=== PATIENT | male | born 2000 | race Caucasian/White ===

== ENCOUNTER 2025-05-01 07:56 | Day surgery (SDC) | payer OTHER ==
[~2025-05-01] VITALS: Ht 195.6 cm; Wt 98.0 kg
[~2025-05-01 07:56] MED LIST: FIBER POWDER368 GM
[2025-05-01] MEDS ORDERED: HEParin SOD (PORCINE) 5,000 UNIT/ML SDV SUB-Q SCH (08:00)
[2025-05-01] MEDS ORDERED: CEFAZOLIN SODIUM 2 GM in SODIUM CHLORIDE 0.9% 100 ML IV SCH (08:00)
[2025-05-01 08:21] VITALS: BP 135/78
[2025-05-01] MEDS ORDERED: fentaNYL citrate 100 MCG/2 ML VIAL ONE (08:30)
[2025-05-01] MEDS ORDERED: BUPIVACAINE 0.75% IN DEXTROSE 2 ML AMP ONE (08:30)
[2025-05-01] MEDS ORDERED: LIDOCAINE HCL 2% 5 ML SDV ONE (08:30)
[2025-05-01] MEDS ORDERED: MIDAZOLAM HCL 2 MG/2 ML VIAL ONE (08:30)
[2025-05-01] MEDS ORDERED: metroNIDAZOLE/SODIUM CHLORIDE 100 ML IV ONE (08:40)
[2025-05-01] MEDS ORDERED: LACTATED RINGER'S 1,000 ML IV SCH ×2 (08:45→10:45)
[2025-05-01] MEDS ORDERED: LIDOCAINE HCL 1% 5 ML SDV INJ ONE (09:00)
[2025-05-01] MEDS ORDERED: IBLOOD GLUCOSE TEST STRIP 1 EA TEST VI PRN (09:00)
[2025-05-01] MEDS ORDERED: ACETAMINOPHEN 1,000 MG/100 ML VIAL ONE (09:32)
[2025-05-01] MEDS ORDERED: KETOROLAC TROMETHAMINE 30 MG/ML VIAL ONE (09:41)
--- NOTE | 2025-05-01 10:24 | NUR ---
05/01/25 Rayna Keys 1016: PT ARRIVED TO PACU VIA STRETCHER. PT DROWSY BUT [place]. PT HAS NO COMPLAINTS OF PAIN OR NAUSEA AT THIS TIME. PT HAS ABD PAD AND UNDERWEAR IN PLACE. 1020: PT REMAINS ON RA. ASKING QUESTIONS WITHOUT DIFFIULTY.
[2025-05-01] MEDS ORDERED: PSYLLIUM SEED 1 PKT PACKET PO SCH (10:36)
[2025-05-01] MEDS ORDERED: TYLENOL EXTRA500 MG PO (10:41)
[2025-05-01] MEDS ORDERED: MOTRIN IB200 MG PO (10:41)
[2025-05-01] MEDS ORDERED: OXYCODONE HCL10 MG PO (10:42)
[2025-05-01] MEDS ORDERED: ACETAMINOPHEN 500 MG TAB PO PRN (10:45)
[2025-05-01] MEDS ORDERED: IBUPROFEN 600 MG TAB PO PRN (10:45)
[2025-05-01] MEDS ORDERED: NALOXONE HCL 0.4 MG SYR IV PRN (10:45)
[2025-05-01] MEDS ORDERED: OXYCODONE/APAP 7.5/325 TAB PO PRN (10:45)
[2025-05-01 10:55] VITALS: BP 124/71
[2025-05-01 11:22] VITALS: BP 128/82
--- NOTE | 2025-05-01 12:14 | NUR ---
1050: PATIENT BACK IN DAY SURGERY ROOM FROM PACU. DENIES PAIN AT SURGICAL SITE. C/O HEADACHE PAIN 08/25. MESH UNDERWEAR ON WITH ABD PAD IN PLACE WITH SMALL AMOUNT OF RED DRAINAGE. VS CHECKED. IV SITE WNL. SCDs ON. AT BEDSIDE. CALL LIGHT WITHIN REACH. 1100: PATIENT GIVEN ICE WATER AND ALEXANDRA CRACKERS. 1130: PATIENT ASSISED OOB. STAND BY ASSIST TO BATHROOM. VOID PER URINAL APPROXIMATELY 275 ML. 1145: PATIENT DRESSED. VS CHECKED. IV DC'D WNL. TIP INTACT. DRESSING APPLIED. 1150: DISCHARGE INSTRUCTIONS GIVEN TO PATIENT AND . PATIENT DISCHARGED TO HOME AMBULATORY WITH . PATIENT DECLINED WHEELCHAIR.
--- NOTE | 2025-05-05 14:13 | OR ---
[facility] [address] [place], [place] [address] Signed DATE OF OPERATION: 05/01/2025 SURGEON: Bahman Simpson MD PREOPERATIVE DIAGNOSIS: Chronic posterior anal fissure. POSTOPERATIVE DIAGNOSIS: Chronic posterior anal fissure. PROCEDURES: 1. Exam under anesthesia. 2. Right lateral internal sphincterotomy. ANESTHESIA: Saddle block; Christiana Christiansen CRNA and local 2 mL of 0.25% Marcaine with epinephrine. INDICATION: This 24-year-old white man is a patient of Jill Hinton MD. He presented quite sometime ago and found to have an anterior and posterior anal fissure. He was treated with diltiazem ointment with good clinical benefit with allowing for complete healing of the anterior fissure. Usual measures were employed including fiber supplementation, diltiazem ointment and so on. Despite having healed the anterior fissure completely he persists with now a chronic posterior anal fissure. It is not nearly as symptomatic as it was at one time, however, he is offered operation which likely should prove to be definitive treatment. The risk of bleeding, infection, variable degrees of incontinence, recurrence, and other unforeseen complications was reviewed in detail with him. He understands the risks and wished to proceed. FINDINGS: Indeed the posterior anal fissure was chronic. It was not extensively long only a cm or so at most. Nevertheless, it did have a chronic appearance. The anterior fissure has healed completely. The right lateral approach was made to the internal sphincter which was well identified and divided under direct visualization extending no longer than the length of the fissure itself. This was ultimately considered to the dentate line, however. Good hemostasis was assured. The wound was closed without problem. He tolerated the procedure well. DESCRIPTION OF PROCEDURE: The patient was brought to the operating room after undergoing saddle block anesthetic. Electronically Signed By: BAHMAN SIMPSON MD 05/05/25 1413 PATIENT NAME: LEORA RENEE OPERATIVE REPORT DATE OF : [birth year] REPORT #: [id number] PHYSICIAN: BAHMAN SIMPSON MD PCP: JILL HINTON MD REPORT IS CONFIDENTIAL AND NOT TO BE RELEASED WITHOUT AUTHORIZATION [facility] [address] [place], [place] [address] Signed He is placed in prone keny-knife position. Buttocks were taped apart and perianal area prepared with a Betadine based solution. Visual inspection was undertaken. Photographs were taken. A bivalve speculum was passed into the anal canal and put on tension. The internal sphincter could easily be palpate. The groove between that and the external sphincter complex was also easily identified. An incision was made in the region of the sphincteric groove with a 15 blade. Hemostasis assured with electrocautery. Using hemostats, the internal sphincter was from the overlying anal mucosa with all due care specially to take note to avoid disruption of the internal up to the anal mucosa. Laterally, the groove between the internal and external sphincter complex was identified as well. Hemostat was placed protecting the anal mucosa and under direct visualization division of the sphincter undertaken with electrocautery. It was extended not beyond the dentate line. Good hemostasis was noted. Irrigation was undertaken. The anal mucosa was reapproximated with interrupted 4-0 chromic suture and pressure applied to the area. Once hemostasis was assured a peripad was applied. He was ultimately returned to the supine position and taken to recovery room in good condition. Blood loss was minimal. Complications none. MD SHANNAN Hinds/ROHINI /[id number] cc: Dr. Jill Hinton Copies: ~ Electronically Signed By: BAHMAN SIMPSON MD 05/05/25 1413 PATIENT NAME: BAHMAN RENEEATHAN [place] OPERATIVE REPORT DATE OF : [birth year] REPORT #: [id number] PHYSICIAN: BAHMAN SIMPSON MD PCP: JILL HINTON MD REPORT IS CONFIDENTIAL AND NOT TO BE RELEASED WITHOUT AUTHORIZATION
== END 2025-05-01 11:50 | disposition home or self-care (01) ==
LOC: DS 07:56
PROVIDERS: ATTEND Surgery
PROC: 0D8R0ZZ Division of Anal Sphincter, Open Approach (ICD-10-PCS; principal; 2025-05-01 09:00)
DX: K60.1 Chronic anal fissure (principal)
CPT/HCPCS: 00902; J0131; J0688; J1644; J1885; J2003; J2250; J2405; J2704; J3010; J7121